=== PATIENT | female | born 1945 | race Caucasian/White ===

== ENCOUNTER 2019-03-18 12:19 | Emergency (ER) | payer MEDICARE, OTHER ==
[~2019-03-18] VITALS: Ht 165.1 cm; Wt 71.7 kg
--- OUTSIDE RECORDS SUMMARY | 2019-03-18 12:36 | XMS ---
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 PHONE: [phone] René has no Care Guidelines for this patient. E.Valerie. VISIT COUNT (12 MO.) [address] [place] [address] TOTAL 2 NOTE: Visits indicate total known visits. ED/UCC VISIT TRACKING (12 MO.) 03/18/2019 12:[address] [facility] TYPE: Emergency COMPLAINT: - DIZZY, RAPID HEART [facility] DIAGNOSES: - Tachycardia, unspecified - Pain in right hip - Tachycardia INPATIENT VISIT TRACKING (12 MO.) No inpatient visits to display in this time frame [email or web address]
--- NOTE | 2019-03-18 18:26 | EKG ---
[facility] [address] [facility] [place], [place] [address] Signed Sinus tachycardia Left axis deviation Nonspecific ST and T wave abnormality Abnormal ECG No previous ECGs available Confirmed by ARIANNA ORELLANA MD ([id number] on 03/18/2019 6:26:12 PM Electronically Signed By: ARIANNA ORELLANA MD 03/18/19 1826 PATIENT NAME: GISELKATHLEENFAISAL DAWN Electrocardiogram DATE OF : 41 PHYSICIAN: ARIANNA ORELLANA MD REPORT #: [id number] REPORT IS CONFIDENTIAL AND NOT TO BE RELEASED WITHOUT AUTHORIZATION
== END 2019-03-18 14:23 | disposition home or self-care (01) ==
LOC: ED 12:19
DX: R00.2 Palpitations (principal); D64.9 Anemia, unspecified; I10 Essential (primary) hypertension; Z87.891 Personal history of nicotine dependence
CPT/HCPCS: 80053; 84484; 85025; 85379; 93005; 93010; 99285-25